=== PATIENT | male | born 1975 | race Caucasian/White ===

== ENCOUNTER 2019-09-09 11:02 | Emergency (ER) | payer OTHER, SELFPAY ==
[~2019-09-09] VITALS: Ht 185.4 cm; Wt 92.1 kg
--- NOTE | 2019-09-09 11:53 | REP ---
Clinical: Trauma. Fall. Technique: Frontal view of the pelvis with neutral and frog lateral views of the left hip. Findings: Pelvis and left hip are normal / intact. No acute fracture or dislocation. Age-related changes to the bilateral hips noted. Surrounding soft tissues are unremarkable. Impression: No acute fracture or dislocation. Electronically Signed by Roberto Deras MD 09/09/2019 11:45 A
[2019-09-09] MEDS ORDERED: IBUP-1022 PO (13:06)
[2019-09-09 13:20] VITALS: BP 129/79
== END 2019-09-09 13:25 | disposition home or self-care (01) ==
LOC: M ED 11:02
DX: S70.02XA Contusion of left hip, initial encounter (principal); W01.10XA Fall on same level from slipping, tripping and stumbling with subsequent striking against unspecified object, initial encounter; Y92.9 Unspecified place or not applicable; Y93.9 Activity, unspecified; Y99.9 Unspecified external cause status